=== PATIENT | female | born 1980 | race Caucasian/White ===

== ENCOUNTER 2017-02-15 23:22 | Emergency (ER) | payer OTHER ==
[2017-02-16 00:08] LABS: BILIRUBIN,URINE NEGATIVE (NEGATIVE)
[2017-02-16 00:09] LABS: UA w/ MICROSCOPIC CHARGE YES
[2017-02-16 00:14] LABS: UR CULTURE IF IND INDICATED
--- NOTE | 2017-02-16 01:25 | Ultrasound Report ---
EXAM: PELVIC ULTRASOUND EXAM DATE: 02/16/2017 12:57 AM. CLINICAL HISTORY: Vaginal bleed, 10 days post . COMPARISON: None. TECHNIQUE: Realtime transabdominal pelvic scan performed with static image documentation. FINDINGS: Uterus: 13.3 x 6.5 x 8.5 cm, volume 384 cc. Anteverted position. Normal overall size and echotexture. Masses: None. Endometrium: 19.3 mm. Heterogeneous. No definite vascularity seen. Cervix: Unremarkable. Right Ovary: 2.7 x 1.4 x 2.1 cm, volume 4.2 cc. Unremarkable. Left Ovary: 2.6 x 1.2 x 2.2 cm, volume 3.6 cc. Unremarkable. Free Fluid: None. Other: None. IMPRESSION: 1. Enlarged uterus with thickened heterogeneous endometrium measuring up to 19.3 mm. 2. No definite endometrial vascularity to indicate retained products of conception. 3. Ovaries appear normal. [facility] Referring Provider Line: [phone] SITE ID: [id number]
--- NOTE | 2017-02-16 01:41 | ED Physician Documentation ---
PD HPI FEMALE - Stated complaint Stated Complaint: FEMALE - Chief complaint Chief Complaint: Abd Pain - History obtained from History obtained from: Patient, Family - History of Present Illness Timing - onset: Today Timing - details: Abrupt onset, Still present Associated symptoms: Pelvic pain, Vaginal bleeding OB-CLINICAL SERVICES SPECIALIST History: G (2), P (2) Recently seen: Not recently seen - Additional information Additional information: Patient is a 36 year old who delivered 10 days ago via vaginal delivery who is presenting to the emergency department for vaginal bleeding. Patient states that the bleeding and cramping had been improving but tonight she had an episode of bleeding and abdominal cramping. there was enough blood to soak a pad, and additional blood in the toilet. Review of Systems Constitutional: denies: Fever, Chills Eyes: denies: Decreased vision, Photophobia Ears: denies: Ear pain Nose: denies: Epistaxis Throat: denies: Oral lesions / sores Cardiac: denies: Chest pain / pressure GI: reports: Abdominal Pain. denies: Nausea, Vomiting : reports: Vaginal bleeding. denies: Dysuria, Frequency Skin: denies: Rash, Lesions Musculoskeletal: denies: Neck pain, Back pain, Extremity pain, Joint pain Neurologic: denies: Generalized weakness, Focal weakness, Syncope Immunocompromised: denies: Immunocompromised PD PAST MEDICAL HISTORY - Past Medical History Past Medical History: No - Past Surgical History Past Surgical History: No - Present Medications Home Medications: Ambulatory Orders Medication Instructions Recorded Confirmed Ibuprofen [Motrin] 800 mg PO Q8H PRN #30 tablet 04/24/15 - Allergies Allergies/Adverse Reactions: Allergies Allergy/AdvReac Type Severity Reaction Status Date / Time aspirin AdvReac Unknown Verified 02/15/17 23:56 ibuprofen [From Motrin] AdvReac Unknown Verified 02/15/17 23:57 - Social History Does the pt smoke?: No Smoking Status: Former smoker Does the pt drink ETOH?: Yes Does the pt have substance abuse?: No - Immunizations Immunizations are current?: Yes PD ED PE NORMAL - Vitals Vital signs reviewed: Yes - General General: Alert and oriented X 3, No acute distress - HEENT HEENT: Atraumatic, PERRL - Neck Neck: Supple, no meningeal sign - Cardiac Cardiac: RRR, No murmur - Respiratory Respiratory: No respiratory distress, Clear bilaterally - Abdomen Abdomen: Soft, Non tender, Non distended - Derm Derm: Normal color, Warm and dry, No rash - Extremities Extremities: No deformity, No tenderness to palpate, No edema - Neuro Neuro: Alert and oriented X 3, 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, No motor deficit, No sensory deficit - Psych Psych: Normal mood, Normal affect PD ED PE EXPANDED - Female Female : Normal external, Vaginal Bleeding (mild vaginal bleeding and minimal discharge), Enlarged uterus, Cultures sent, Classification And Treatment Director present Results - Vitals Vitals: Vital Signs - 24 hr 02/15/17 02/15/17 23:26 23:57 Temperature 36.2 C L Heart Rate 97 Respiratory 16 Rate Blood Pressure 145/89 H O2 Saturation 99 Oxygen O2 Source Room air - Labs Labs: Laboratory Tests 02/15/17 23:50 Urine Color YELLOW Urine Clarity CLEAR Urine pH 6.0 Ur Specific [place] <=1.005 Urine Protein NEGATIVE Urine Glucose (UA) NEGATIVE Urine Ketones NEGATIVE Urine Occult Blood LARGE H Urine Nitrite NEGATIVE Urine Bilirubin NEGATIVE Urine Urobilinogen 0.2 (NORMAL) Ur Leukocyte Esterase SMALL H Urine RBC 11-25 H Urine WBC 4-5 Ur Squamous Epith Cells FEW Squamous Urine Bacteria Few Ur Microscopic Review INDICATED Urine Culture Comments INDICATED - Rads (name of study) pelvic ultrasound Radiology: Final report received (no retained products of conception, no free fluid) PD MEDICAL DECISION MAKING - ED course Complexity details: reviewed results, re-evaluated patient, considered differential, d/w patient, d/w family, d/w loans consultant ED course: Patient was seen and examined at bedside. patient was well appearing and vital signs were within normal limits. Pelvic exam was performed and showed only minimal bleeding. ultrasound was ordered. When patient returned from ultrasound the results were reviewed. there were no major abnormalities. OB on -call, Dr. Simeon was contacted and the case was discussed with him. He stated that it would likely be self limited and patient was stable for outpatient follow up. Patient was discharged in stable condition. Departure - Departure Disposition: 01 Home, Self Care Clinical Impression: bleeding Condition: Good Instructions: Vaginal After Follow-Up: Hayes Simeon MD [Provider Admit Priv/Credential] - As Needed Comments: Your diagnostics today were within normal limits. Your symptoms should be self limited. You should call your ob tomorrow to schedule a follow up appointment. If you are unable to get in with your ob you can schedule a follow up appointment with dr. simeon. You may return to the emergency department at any time for new, worsening or uncontrollable symptoms.
[2017-02-16 01:55] VITALS: BP 133/62
== END 2017-02-16 01:55 | disposition home or self-care (01) ==
LOC: ED 23:22
DX: O72.2 Delayed and secondary postpartum hemorrhage (principal); Z87.891 Personal history of nicotine dependence
CPT/HCPCS: 76856; 81001; 81003; 87086; 87210; 87491; 87591; 99283; 99284